=== PATIENT | female | born 2005 | race Caucasian/White ===

== ENCOUNTER 2025-04-13 09:32 | Emergency (ER) | payer OTHER ==
[~2025-04-13] VITALS: Ht 167.6 cm; Wt 57.3 kg
[2025-04-13 12:06] LABS: BASO # 0.0 10^3/uL (0.0-0.2); BASO % 0.5 % (0.0-1.0); EOS # 0.0 10^3/uL (0.0-0.5); EOS % 0.3 % (0.0-3.0); LYMPH # 1.4 10^3/uL (1.5-5.0); LYMPH % 22.0 % (24.0-44.0); MONO # 1.3 10^3/uL (0.0-0.8); MONO % 19.4 % (2.0-8.0); NEUTROPHILS # 3.8 10^3/uL (1.5-8.5); NEUTROPHILS % 57.6 % (36.0-66.0); PLATELET COUNT, AUTOMATED 206 10^3/uL (150-450)
[2025-04-13 12:23] LABS: CALCIUM LEVEL 9.1 MG/DL (8.5-10.1); CARBON DIOXIDE LEVEL 27 MMOL/L (20-31); CHLORIDE LEVEL 102 MMOL/L (98-107); CREATININE FOR GFR 0.82 MG/DL (0.55-1.30); GLOMERULAR FILTRATION RATE > 90.0 (>60); HCG, SERUM QUANTITATIVE < 2.6 MIU/ML (<4.2); POTASSIUM SERUM 3.0 MMOL/L (3.5-5.1); SODIUM LEVEL 143 MMOL/L (136-145)
[2025-04-13 12:28] LABS: HCG, SERUM QUALITATIVE NEGATIVE (NEGATIVE)
[2025-04-13 12:40] VITALS: BP 127/80; TEMP 97.2; O2SAT 99
== END 2025-04-13 13:06 | disposition home or self-care (01) ==
LOC: M ED 09:32
DX: Z32.02 Encounter for pregnancy test, result negative (principal); N92.0 Excessive and frequent menstruation with regular cycle